=== PATIENT | male | born 1990 | race Caucasian/White ===

== ENCOUNTER 2021-06-19 13:22 | Emergency (ER) | payer BC ==
[~2021-06-19] VITALS: Ht 157.5 cm; Wt 73.0 kg
[~2021-06-19 13:22] MED LIST: KEPPSOL; LAMO25TA71 MT
[2021-06-19 13:27] VITALS: BP 126/66
[2021-06-19] MEDS ORDERED: KEPP500 MT (13:52)
== END 2021-06-19 14:07 | disposition home or self-care (01) ==
LOC: ER 13:22
DX: G40.909 Epilepsy, unspecified, not intractable, without status epilepticus (principal); D64.9 Anemia, unspecified; Z76.0 Encounter for issue of repeat prescription
CPT/HCPCS: 99281

== ENCOUNTER 2021-07-12 09:44 | Emergency (ER) | payer BC ==
[~2021-07-12] VITALS: Ht 157.5 cm; Wt 73.0 kg
[~2021-07-12 09:44] MED LIST changes: +KEPP500 MT
[2021-07-12 10:04] VITALS: BP 125/77
[2021-07-12] MEDS ORDERED: LAMO25TA9 MT (10:15)
== END 2021-07-12 10:41 | disposition home or self-care (01) ==
LOC: ER 09:44
DX: G43.909 Migraine, unspecified, not intractable, without status migrainosus (principal); D64.9 Anemia, unspecified; Z76.0 Encounter for issue of repeat prescription; Z79.899 Other long term (current) drug therapy
CPT/HCPCS: 99283

== ENCOUNTER 2021-07-18 12:15 | Emergency (ER) | payer BC, MEDICAID ==
[~2021-07-18] VITALS: Ht 157.5 cm; Wt 73.0 kg
[~2021-07-18 12:15] MED LIST changes: +LAMO25TA9 MT
[2021-07-18] MEDS ORDERED: MESA400C PO (12:50)
[2021-07-18 12:57] VITALS: BP 118/76
== END 2021-07-18 13:34 | disposition home or self-care (01) ==
LOC: ER 13:24
DX: Z59.00 Homelessness unspecified (principal); D64.9 Anemia, unspecified; Z79.899 Other long term (current) drug therapy
CPT/HCPCS: 99282

== ENCOUNTER 2021-07-22 09:54 | Emergency (ER) | payer BC, MEDICAID ==
[~2021-07-22] VITALS: Ht 157.5 cm; Wt 73.0 kg
[~2021-07-22 09:54] MED LIST changes: +MESA400C PO
[2021-07-22 10:08] VITALS: BP 117/54
[2021-07-22] MEDS ORDERED: LAMO25TA71 MT (10:26)
== END 2021-07-22 10:44 | disposition home or self-care (01) ==
LOC: ER 09:54
DX: Z76.0 Encounter for issue of repeat prescription (principal); R56.9 Unspecified convulsions; D64.9 Anemia, unspecified; Z87.19 Personal history of other diseases of the digestive system
CPT/HCPCS: 99283

== ENCOUNTER 2021-08-07 02:58 | Emergency (ER) | payer BC, MEDICAID ==
[~2021-08-07] VITALS: Ht 157.5 cm; Wt 72.0 kg
[2021-08-07 03:05] VITALS: BP 118/67
[2021-08-07] MEDS ORDERED: LAMO25TA71 PO (03:53)
== END 2021-08-07 04:11 | disposition home or self-care (01) ==
LOC: ER 02:58
DX: Z76.0 Encounter for issue of repeat prescription (principal); G40.909 Epilepsy, unspecified, not intractable, without status epilepticus
CPT/HCPCS: 99283

== ENCOUNTER 2021-10-18 23:14 | Emergency (ER) | payer BC, MEDICAID ==
[~2021-10-18] VITALS: Ht 160 cm; Wt 73.0 kg
[~2021-10-18 23:14] MED LIST changes: +LAMO25TA71 PO
[2021-10-18 23:35] VITALS: BP 113/69
[2021-10-19] MEDS ORDERED: DIVALPROEX SODIUM 500MG ER TABLET PO ONE
[2021-10-19] MEDS ORDERED: DIVA500T51 MT (11:51)
== END 2021-10-19 00:18 | disposition home or self-care (01) ==
LOC: ER 23:14
DX: Z76.0 Encounter for issue of repeat prescription (principal); D64.9 Anemia, unspecified; Z79.899 Other long term (current) drug therapy
CPT/HCPCS: 99283

== ENCOUNTER 2021-10-19 11:09 | Emergency (ER) | payer BC, MEDICAID ==
[~2021-10-19] VITALS: Ht 160 cm; Wt 73.0 kg
[2021-10-19] MEDS ORDERED: DIVA500T51 MT (11:51)
[2021-10-19 12:01] VITALS: BP 127/74
== END 2021-10-19 12:02 | disposition home or self-care (01) ==
LOC: ER 11:09
DX: Z76.0 Encounter for issue of repeat prescription (principal)
CPT/HCPCS: 99281

== ENCOUNTER 2021-10-29 09:27 | Emergency (ER) | payer BC, MEDICAID ==
[~2021-10-29] VITALS: Ht 157.5 cm; Wt 73.0 kg
[~2021-10-29 09:27] MED LIST changes: +DIVA500T51 MT
[2021-10-29 09:36] VITALS: BP 110/45
[2021-10-29] MEDS ORDERED: DIVALPROEX SODIUM 250MG ER TABLET PO ONE (09:45)
== END 2021-10-29 10:45 | disposition home or self-care (01) ==
LOC: ER 10:16
DX: G40.909 Epilepsy, unspecified, not intractable, without status epilepticus (principal); Z72.0 Tobacco use; Z98.890 Other specified postprocedural states
CPT/HCPCS: 99283

== ENCOUNTER 2021-11-17 10:42 | Emergency (ER) | payer BC, MEDICAID ==
[~2021-11-17] VITALS: Ht 167.6 cm; Wt 70.0 kg
[2021-11-17 10:49] VITALS: BP 115/76
[2021-11-17] MEDS ORDERED: KEPP500 PO (13:19)
[2021-11-17] MEDS ORDERED: LEVETIRACETAM 500MG TABLET PO SCH (13:30)
== END 2021-11-17 14:17 | disposition home or self-care (01) ==
LOC: ER 10:42
DX: G40.909 Epilepsy, unspecified, not intractable, without status epilepticus (principal); D64.9 Anemia, unspecified; Z76.0 Encounter for issue of repeat prescription; Z87.19 Personal history of other diseases of the digestive system
CPT/HCPCS: 99283

== ENCOUNTER 2021-12-02 20:32 | Emergency (ER) | payer BC, MEDICAID ==
[~2021-12-02] VITALS: Ht 172.7 cm; Wt 68.9 kg
[~2021-12-02 20:32] MED LIST changes: +KEPP500 PO
[2021-12-02 21:40] VITALS: BP 113/73
[2021-12-02] MEDS ORDERED: LEVETIRACETAM 500MG TABLET PO ONE (22:00)
== END 2021-12-02 23:08 | disposition home or self-care (01) ==
LOC: ER 20:32
DX: Z76.0 Encounter for issue of repeat prescription (principal); G40.909 Epilepsy, unspecified, not intractable, without status epilepticus; Z87.11 Personal history of peptic ulcer disease
CPT/HCPCS: 99283

== ENCOUNTER 2022-03-12 00:48 | Emergency (ER) | payer BC ==
[~2022-03-12] VITALS: Ht 160 cm; Wt 73.0 kg
[2022-03-12 00:50] VITALS: BP 126/74
[2022-03-12] MEDS ORDERED: LAMOTRIGINE 100MG TABLET PO SCH (01:00)
[2022-03-12] MEDS ORDERED: PHENYTOIN SODIUM EXTENDED 100MG CAPSULE PO ONE (01:00)
[2022-03-12] MEDS ORDERED: LEVETIRACETAM 500MG TABLET PO ONE (01:00)
== END 2022-03-12 01:36 ==
LOC: ER 00:48
DX: G40.909 Epilepsy, unspecified, not intractable, without status epilepticus (principal)
CPT/HCPCS: 82962; 99283